=== PATIENT | male | born 1970 | race Caucasian/White ===

== ENCOUNTER 2016-06-14 12:55 | Day surgery (SDC) | payer OTHER ==
[~2016-06-14] VITALS: Ht 182.9 cm; Wt 87.0 kg
[~2016-06-14 12:55] MED LIST: HYDR-4003 PO; METH750T3 PO; NADO40TA PO; RANI150T11 PO; Sodium Chloride LOK Flush 10 mL Syringe IV PRN; USTE45DI SQ; fentaNYL-PF 50 mCg/mL 2 mL Inj IVPUSH PRN
[2016-06-14] MEDS ORDERED: ADAL40PE3 SQ (13:19)
[2016-06-14 13:20] VITALS: BP 152/101; PULSE 56; RESP 16; O2SAT 100
[2016-06-14] MEDS ORDERED: CLAR500T PO (13:20)
[2016-06-14] MEDS: 0.9% Sodium Chloride 1,000 ML IV SCH ×2 (13:49→14:12)
[2016-06-14 14:17] VITALS: BP 108/69; PULSE 62; RESP 14; O2SAT 97
[2016-06-14 14:32] VITALS: BP 98/69; PULSE 60; RESP 16; O2SAT 98
[2016-06-14 14:36] VITALS: BP 121/69; PULSE 62; RESP 16; O2SAT 97
--- NOTE | 2016-06-14 21:22 | ENDO ---
[address] [address] ENDOSCOPY PROCEDURE PATIENT: RE DENISE : 1970 MR#: [id number] ADMIT: 06/14/2016 JOB ID: [id number] PRIMARY PROVIDER: Bessie Lainez PA-C. PROCEDURE: Esophagogastroduodenoscopy with biopsies. INDICATIONS: A 46-year-old male with chronic intermittent reflux symptoms partially attenuated with ranitidine who presents for [facility] screening. EQUIPMENT: GIF H 180 J. SEDATION: 1. Versed 11 mg. 2. Fentanyl 200 mcg. COMPLICATIONS: None identified. PROCEDURE INFORMATION: After the risks and benefits were explained, written and verbal informed consent was obtained. The patient was brought into the endoscopy suite and placed into the left lateral decubitus position. Sedation was achieved as above. The scope was introduced into the mouth through the bite block, and advanced under direct visualization to the second portion of the duodenum. The scope was slowly withdrawn to carefully examine the mucosa for any defects or lesions. Retroflexed views were accomplished in the stomach, and the stomach was decompressed. The scope was removed from the patient who tolerated the procedure well. FINDINGS: 1. Duodenum: In the bulb, there was some scattered erythema that was really in essence a continuation of the marked gastropathy seen in the antrum and prepyloric region. I did not, however, see the ulcers or significant erosions. No mass lesions from D1 to D2. 2. Stomach: The patient had scattered linear erythematous changes throughout the antrum even with some very subtle diminutive superficial ulcerative changes within this region. Biopsy was acquired from the afflicted mucosa to exclude Helicobacter or any other underlying histopathology. Otherwise, gastric mucosa was fairly unremarkable including retroflexed views of the LES. 3. Esophagus: The squamocolumnar junction correlated with the top of the gastric folds. The GE junction was at 37 cm from the incisors. The patient had a single linear erosion in the 2 o'clock location that was perhaps about 8 mm long. The remainder of the esophagus was unremarkable. The patient had a normal benign appearing inlet patch. ENDOSCOPIC DIAGNOSES: 1. LA grade B erosive esophagitis. 2. Ulcerative gastroduodenopathy. RECOMMENDATIONS: 1. Await histopathology. 2. If Helicobacter is found, it will need to be eradicated with standard triple therapy recognizing the patient's allergy to PENICILLIN. 3. The patient is encouraged to curtail his alcohol intake. 4. The patient is encouraged to increase his antisecretory/antireflux therapy in light of the esophagitis present today.
--- NOTE | 2016-06-16 14:52 | PATH ---
SURGICAL PATHOLOGY Attending Physician:Samina Jeffries CASE STATUS: Signed Out PATIENT NAME: RE DENISE PID: [id number] : 1970 DATE COLLECTED:06/14/2016 00:00 SPECIMEN: Gastric, Biopsy CLINICAL HISTORY: A: GASTRIC BIOPSY FINAL DIAGNOSIS: 1.GASTRIC BIOPSY: ANTRAL MUCOSA WITH CHANGES CONSISTENT WITH REACTIVE GASTROPATHY. ICD10 CODE K31.89 GROSS DESCRIPTION: The specimen is received in formalin, labeled with the patient's name, sublabeled as gastric Bx and consists of a fragment of hackett-white semitranslucent rubbery tissue (0.3 x 0.2 by 0.2 cm). Section code: (A) tissue. Specimen entirely submitted. 06/15/16 JM MICRO DESCRIPTION: See diagnosis. ICD-9 CODES: CPT CODES: 1: 19908 Electronically Signed Out Bhanu Dennis MD [facility] Pathology [facility] [address], [place] [address] Technical component performed at [facility], [facility] [address], [place], [address]
== END 2016-06-14 23:59 | disposition home or self-care (01) ==
LOC: END 12:55
PROVIDERS: ATTEND Internal Medicine Gastroenterology
DX: K31.9 Disease of stomach and duodenum, unspecified (principal); K20.9 Esophagitis, unspecified; K27.9 Peptic ulcer, site unspecified, unspecified as acute or chronic, without hemorrhage or perforation; K21.9 Gastro-esophageal reflux disease without esophagitis; F17.220 Nicotine dependence, chewing tobacco, uncomplicated